=== PATIENT | male | born 1975 | race Caucasian/White ===

== ENCOUNTER 2019-10-02 08:23 | Emergency (ER) | payer MEDICAID ==
[~2019-10-02] VITALS: Ht 182.9 cm; Wt 86.4 kg
[2019-10-02 09:31] VITALS: BP 132/81
== END 2019-10-02 09:33 | disposition home or self-care (01) ==
LOC: ER 08:24
DX: S50.311A Abrasion of right elbow, initial encounter (principal); M71.521 Other bursitis, not elsewhere classified, right elbow; F12.90 Cannabis use, unspecified, uncomplicated; Z60.2 Problems related to living alone; Z59.0 Homelessness; V00.131A Fall from skateboard, initial encounter; Y93.89 Activity, other specified; Y92.89 Other specified places as the place of occurrence of the external cause; Y99.8 Other external cause status
CPT/HCPCS: 73080; 99283